=== PATIENT | female | born 1975 | race Two or more races ===

== ENCOUNTER → 2017-05-08 | Outpatient (REF) | payer OTHER | LOC: M SFHCLERA 18:41 | DX: J02.9 Acute pharyngitis, unspecified (principal) ==

== ENCOUNTER → 2018-02-28 | Outpatient (CLI) | payer OTHER ==
--- NOTE | 2018-02-28 17:56 | REP ---
Chest x-ray: Two views. History: Shortness of breath. . Comparison study: No comparison study . Findings: The lungs are well inflated and free of infiltrate. The pleural angles are sharp. The heart size is normal. Pulmonary vasculature is not increased. No significant bony abnormality is seen. Impression: Negative chest x-ray. Electronically Signed by Ilia Chao MD 02/28/2018 05:48 P
== END ==
LOC: M LRY 17:25
PROVIDERS: ATTEND Physician Assistant
DX: R06.02 Shortness of breath (principal)

== ENCOUNTER → 2018-04-28 | Outpatient (REF) | payer OTHER | LOC: M SFHCLERA 12:17 | PROVIDERS: ATTEND Nurse Practitioner Family | DX: R30.0 Dysuria (principal) ==

== ENCOUNTER → 2018-09-19 | Outpatient (REF) | payer OTHER | LOC: M SFHCLERA 15:44 | PROVIDERS: ATTEND Nurse Practitioner Family | DX: R30.0 Dysuria (principal) | CPT/HCPCS: 81002; 87088; 87186; G0463 ==

== ENCOUNTER → 2019-09-04 | Outpatient (CLI) | payer OTHER | LOC: M PLALAB 11:56 | PROVIDERS: ATTEND Surgery | DX: Z13.9 Encounter for screening, unspecified (principal) ==

== ENCOUNTER → 2019-09-04 | Outpatient (CLI) | payer OTHER ==
--- NOTE | 2019-09-11 14:03 | REPMRS ---
Patient History The patient states she had a clinical breast exam in August 2019. Patient is postmenopausal. Family history of breast cancer at age 62 in mother, breast cancer in maternal grandmother. Digital Woman Screen Mammo: September 04, 2019 - Exam #: [id number] Bilateral CC and MLO view(s) were taken. Technologist: Veronique Elmore, Technologist Prior study comparison: August 20, 2015, left breast diagnostic unilateral mammo, [facility]. August 05, 2015, bilateral digital woman screen mammo, performed at [facility]. FINDINGS: There are scattered fibroglandular densities. The Volpara volumetric breast density category is:B. There has been no change in the appearance of the mammogram from the prior studies. There is a mild amount of scattered fibroglandular density which is fairly symmetric. There is no interval development of dominant mass, architectural distortion, or grouped microcalcification suggestive of malignancy. 3-D tomosynthesis shows no additional findings. Assessment: BI-RADS/ACR category 1 mammogram. Negative Mammogram. Recommendation Routine screening mammogram of both breasts in 1 year (for women over age 40). This patient's Lifetime Breast Cancer Risk is estimated at 12.7 %. This mammogram was interpreted with the aid of an FDA-approved computer-aided dectection system. Electronically Signed By: Efra Chao MD 09/11/19 [id number]
== END ==
LOC: M WHC 11:23
PROVIDERS: ATTEND Surgery
DX: Z12.31 Encounter for screening mammogram for malignant neoplasm of breast (principal); Z78.0 Asymptomatic menopausal state; Z80.3 Family history of malignant neoplasm of breast

== ENCOUNTER → 2020-03-22 | Outpatient (CLI) | payer OTHER ==
[~2020-03-22] MED LIST: PROHANCE 279.3MG/ML 15ML VIAL As Ordered ONE
--- NOTE | 2020-03-22 16:51 | REP ---
INDICATION: HIGH RISK BREAST CA SCREENING. COMPARISON: Comparison mammography September 04, 2019. TECHNIQUE: Three [place] MRI imaging was performed with a dedicated breast coil. Axial, coronal, and sagittal T1 and T2 weighted scans were obtained with and without fat saturation in the usual fashion. The study includes dynamically acquired post gadolinium-enhanced imaging with image subtraction. Maximum intensity projection and multi planar reformation imaging is included as well. This study is interpreted with the aid of ObsEvaD, an FDA approved computer aided detection (CAD) software program, on a dedicated breast MRI workstation. The gadolinium enhancement dose is 12 mL of intravenous ProHance. FINDINGS: There is scattered fibroglandular elements bilaterally. Slightly more prominent in the upper outer quadrant on the right than the left. There is no evidence of axillary lymphadenopathy or significant breast cystic change on either side. High-resolution pre and post-contrast images show no suspicious morphologic abnormality in either breast. Dynamically acquired sequential postcontrast images show no suspicious focus of enhancement and/or washout on either side. Subtraction images are unremarkable. IMPRESSION: BI-RADS category 1-findings. <Electronically signed by Efra Chao > 03/22/20 [id number]
== END ==
LOC: M RAD 12:53
PROVIDERS: ATTEND Surgery
DX: Z12.39 Encounter for other screening for malignant neoplasm of breast (principal)
CPT/HCPCS: A9576; C8908